=== PATIENT | male | born 1965 | race Caucasian/White ===

== ENCOUNTER 2018-02-11 07:58 | Emergency (ER) | payer OTHER ==
[~2018-02-11] VITALS: Ht 177.8 cm; Wt 90.7 kg
[2018-02-11] MEDS ORDERED: NKM (08:09)
[2018-02-11] MEDS ORDERED: Lidocaine 1% MPF 10mg/ml 5ml IM ONE (08:30)
[2018-02-11 08:36] VITALS: BP 131/90
--- NOTE | 2018-02-11 08:38 | Emergency Room Report ---
History of Present Illness General Chief Complaint: Laceration Source: Patient Present Illness HPI Patient present with injury to the right middle finger This happened approximately 6:30 in the morning Essentially had a laceration with a metal blade Denies any other trauma denies any lapse of consciousness pain is 3 out of 10 Patient reports that he can bend and straighten his finger Patient denies any wrist pain Last tetanus shot was within 5 years Allergies: Coded Allergies: No Known Allergies (Unverified , 02/11/18) Patient History Past Medical History: see triage record Pertinent Family History: none Reviewed Nursing Documentation: PMH: Agreed; PSxH: Agreed Nursing Documentation-PMH Past Medical History: No Stated History Review of Systems All Other Systems: negative except mentioned in HPI Physical Exam Vital Signs Date Time Temp Pulse Resp B/P (MAP) Pulse Ox O2 Delivery O2 Flow Rate FiO2 02/11/18 08:04 98.2 59 16 131/90 96 Room Air 98.2 Sp02 EP Interpretation: reviewed, normal General Appearance: well appearing, no apparent distress Head: normocephalic, atraumatic Eyes: bilateral eye PERRL, bilateral eye EOMI ENT: normal pharynx, no angioedema Neck: supple Respiratory: lungs clear Musculoskeletal: other - Approximately 1.0 laceration, jagged palmar aspect of the right middle finger PIP region. Patient has full flexion and extension of the finger, good cap refill sensory is intact, Neurologic: alert, oriented x3 Skin: other - As above Lymphatic: no adenopathy Procedures Splinting Splinting : Consent: Verbal Location: Right middle finger Pre-Made Type: Finger Pre-Proc Neuro Vasc Exam: normal Post-Proc Neuro Vasc Exam: normal Patient Tolerated: Well Complications: None Laceration/Wound Repair Laceration/Wound Repair : Consent: Verbal Wound Location: upper extremity Wound's Depth, Shape: into muscle, irregular Wound Length (cm): 1 Wound Explored: no foreign body removed Irrigated w/ Saline (ccs): 200 Betadine Prep?: Yes Anesthesia: 1% Lidocaine Volume Anesthetic (ccs): 2 Wound Debrided: minimal Wound Repaired With: sutures Suture Size/Type: 5:0 Number of Sutures: 4 Layer Closure?: No Sterile Dressing Applied?: Yes Splint Applied?: Yes Type of Splint Applied: Finger Patient Tolerated: Well Complications: None Medical Decision Making Diagnostic Impression: Primary Impression: Laceration ER Course Total length approximately 1 cm Laceration closure as noted in the note patient tolerated the procedure well at this time there is no concern regarding tendon laceration as the patient has full flexion and extension of the digit He is already up-to-date with immunization and disposition for close Worker's Comp. clinic follow-up Last Vital Signs Date Time Temp Pulse Resp B/P (MAP) Pulse Ox O2 Delivery O2 Flow Rate FiO2 02/11/18 08:04 98.2 59 16 131/90 96 Room Air 98.2 Status: improved Disposition: HOME, SELF-CARE Condition: Improved Additional Instructions: Patient is provided with the discharge instructions notified to follow up with primary doctor in the next 2-3 days otherwise return to the er with any worsening symptoms. Please note that this report is being documented using [employer] technology. This can lead to erroneous entry secondary to incorrect interpretation by the dictating instrument. Gudelia Garcia DO Feb 11, 2018 08:38
[2018-02-11] MEDS ORDERED: Bacitracin Oint UD TOPIC ONE ×2 (08:59→09:00)
[2018-02-11 09:28] VITALS: BP 133/88
== END 2018-02-11 09:28 | disposition home or self-care (01) ==
LOC: EMR 08:46
DX: S61.212A Laceration without foreign body of right middle finger without damage to nail, initial encounter (principal); W45.8XXA Other foreign body or object entering through skin, initial encounter; Y92.9 Unspecified place or not applicable
CPT/HCPCS: 99283

== ENCOUNTER 2018-02-26 13:11 | Emergency (ER) | payer OTHER ==
[~2018-02-26] VITALS: Ht 177.8 cm; Wt 90.7 kg
[~2018-02-26 13:11] MED LIST: NKM
[2018-02-26 13:26] VITALS: BP 132/84
--- NOTE | 2018-02-26 13:55 | Emergency Room Report ---
History of Present Illness General Chief Complaint: Wound Recheck/Suture Removal Source: Patient Present Illness HPI 52-year-old male presents to the emergency department for suture removal. Patient had sutures placed on the right ring finger approximately 2 weeks ago after sustaining a laceration. Patient denies pain at this time he denies bleeding, discharge, erythema or swelling. Patient is up-to-date with tetanus vaccination. Allergies: Coded Allergies: No Known Allergies (Unverified , 02/11/18) Patient History Past Medical History: see triage record Past Surgical History: none Pertinent Family History: none Reviewed Nursing Documentation: PMH: Agreed; PSxH: Agreed Nursing Documentation-PMH Past Medical History: No Stated History Review of Systems All Other Systems: negative except mentioned in HPI Physical Exam Vital Signs Date Time Temp Pulse Resp B/P (MAP) Pulse Ox O2 Delivery O2 Flow Rate FiO2 02/26/18 13:23 98.2 71 18 132/84 95 Room Air 98.2 Sp02 EP Interpretation: reviewed, normal General Appearance: no apparent distress, alert, GCS 15, non-toxic Head: normocephalic, atraumatic Eyes: bilateral eye normal inspection, bilateral eye PERRL ENT: hearing grossly normal, normal voice Neck: full range of motion Respiratory: lungs clear, normal breath sounds, speaking full sentences Cardiovascular #1: regular rate, rhythm Genitourinary: normal inspection Musculoskeletal: back normal, gait/station normal, normal range of motion, non- tender, swelling - right ring finger appears mildly swollen Neurologic: alert, oriented x3, responsive, motor strength/tone normal, sensory intact, speech normal, grossly normal Psychiatric: judgement/insight normal Skin: normal color, no rash, warm/dry, well hydrated, wd healing/no infection noted - Right ring finger, dorsum. mild swelling, no erythema Lymphatic: no adenopathy Medical Decision Making PA Attestation Dr. bautista is my supervising Physician whom patient management has been discussed with. Diagnostic Impression: Primary Impression: Encounter for removal of sutures ER Course 52-year-old male presents to the emergency department for suture removal. Patient had sutures placed on the right ring finger approximately 2 weeks ago after sustaining a laceration. Patient denies pain at this time he denies bleeding, discharge, erythema or swelling. Patient is up-to-date with tetanus vaccination. Ddx considered but are not limited to laceration, tendon injury, cellulitis, dehiscence. Vital signs: are WNL, pt. is afebrile H&PE are most consistent with: healed laceration of the right ring finger ORDERS: none required at this time, the diagnosis is clinical ED INTERVENTIONS: - Sutures removed. DISCHARGE: At this time pt. is stable for d/c to home. Will provide printed patient care instructions, and any necessary prescriptions. Care plan and follow up instructions have been discussed with the patient prior to discharge. Last Vital Signs Date Time Temp Pulse Resp B/P (MAP) Pulse Ox O2 Delivery O2 Flow Rate FiO2 02/26/18 13:26 98.2 71 18 132/84 95 Room Air 98.2 Disposition: HOME, SELF-CARE Condition: Stable Patient Instructions: Suture Removal, Care After Additional Instructions: Follow up with a Primary Care Provider in 3-5 days, even if your symptoms have resolved. --Please review list of primary care clinics, if you do not already have a primary care provider Return sooner to ED if new symptoms occur, or current symptoms become worse. - Please note that this Emergency Department Report was dictated using [employer] technology software, occasionally this can lead to erroneous entry secondary to interpretation by the dictation equipment. Edyta Goldberg Feb 26, 2018 13:55
[2018-02-26 14:21] VITALS: BP 132/84
== END 2018-02-26 14:22 | disposition home or self-care (01) ==
LOC: EMR 14:15
DX: S61.214A Laceration without foreign body of right ring finger without damage to nail, initial encounter (principal); Z76.0 Encounter for issue of repeat prescription; X58.XXXA Exposure to other specified factors, initial encounter; Y93.9 Activity, unspecified; Y92.9 Unspecified place or not applicable
CPT/HCPCS: 99285